=== PATIENT | male | born 1965 | race Caucasian/White ===

== ENCOUNTER 2022-02-18 05:38 | Day surgery (SDC) | payer MEDICARE ==
[2022-02-08 16:20] LABS: BASOPHILS # (AUTO) 0.1 X10'3 (0-0.2); BASOPHILS % (AUTO) 0.8 % (0-1); EOSINOPHILS # (AUTO) 0.1 X10'3 (0-0.9); EOSINOPHILS % (AUTO) 1.1 % (0-6); LYMPHOCYTES # (AUTO) 1.4 X10'3 (1.1-4.8); LYMPHOCYTES % (AUTO) 19.5 % (21-51); MEAN CORPUSCULAR HEMOGLOBIN 28.3 PG (27.0-31.0); MEAN CORPUSCULAR HGB CONC 34.2 g/dL (33.0-36.5); MEAN CORPUSCULAR VOLUME 82.7 FL (78-98); MONOCYTES # (AUTO) 0.3 X10'3 (0-0.9); MONOCYTES % (AUTO) 4.9 % (2-12); NEUTROPHILS # (AUTO) 5.3 X10'3 (1.8-7.7); NEUTROPHILS % (AUTO) 73.7 % (42-75); PRE OP HEMATOCRIT 42.8 % (42.0-52.0); PRE OP HEMOGLOBIN 14.6 g/dL (14.0-17.9); PRE OP PLATELET COUNT 276 X10'3 (140-440); RED BLOOD COUNT 5.18 X10'6 (4.70-6.10); RED CELL DISTRIBUTION WIDTH 14.9 % (11.5-14.5)
[2022-02-08 16:38] LABS: ALBUMIN 3.8 G/DL (3.4-5.0); ALBUMIN/GLOBULIN RATIO 1.1 (1.1-1.5); ALKALINE PHOSPHATASE 99 IU/L (46-116); BLOOD UREA NITROGEN 10 MG/DL (7-18); BUN/CREATININE RATIO 13.2 (5.4-32.0); CALCIUM 9.1 MG/DL (8.5-10.1); CHLORIDE 102 MMOL/L (99-107); CREATININE 0.76 MG/DL (0.60-1.10); PRE OP ALT 33 U/L (30-65); PRE OP ANION GAP 15 (8-16); PRE OP AST 19 U/L (10-37); PRE OP GLUCOSE 163 MG/DL (70-104); PRE OP POTASSIUM 3.8 MMOL/L (3.4-5.1); PRE OP SODIUM 144 MMOL/L (135-145); TOTAL CARBON DIOXIDE 26.7 MMOL/L (24-32); TOTAL PROTEIN 7.3 G/DL (6.4-8.2); eGFR > 90 ML/MIN
[2022-02-18] VITALS (9 sets, daily range): BP systolic 143–170; BP diastolic 87–104
[~2022-02-18] VITALS: Ht 172.7 cm; Wt 104.5 kg
[~2022-02-18 05:38] MED LIST: CYCL5TAB PO; HYDR25TA4 PO; MELO-102 PO; METF-1203 PO; PRAV80TA3 PO; ceFAZolin inj. 2,000 MG in dextrose 5%-water 100 ML IV ONE; famotidine 20mg tablet PO ONE; ringers solution, lacted 1,000 ML IV SCH
--- NOTE | 2022-02-18 05:45 | NUR ---
PT ARRIVE FOR SURGERY ON LEFT SHOULDER. PTS FRIEND AT BEDSIDE, NEEDS AN HOURS NOTICE FOR PICKUP. rADIAL PULSE MARKED, PT EDUCATED ON THE USE OF THE INCENTIVE SPIROMETRY. PT WAS ABLE TO PERFORM IS WITHOUT DIFFICULTY, OBTAINED TITAL VOLUME OF 3000. iV STARTED IN RIGHT HAND WITHOUT DIFFICULTY. SCD STOCKINGS PLACED ON PT.
[2022-02-18] MEDS ORDERED: FENTANYL CITRATE/PF 50 MCG/1 ML VIAL ONE (07:21)
[2022-02-18] MEDS ORDERED: ROPIVAcaine 0.5% (5mg/ml) 30ml vial ONE (07:22)
[2022-02-18] MEDS ORDERED: midazolam 1 mg/ML 2ml injection ONE (07:22)
[2022-02-18] MEDS ORDERED: propofol inj 20 ML IV ONE (07:23)
[2022-02-18] MEDS ORDERED: LIDOcaine 2% (20mg/ml) 5ml vial ONE (07:23)
[2022-02-18] MEDS ORDERED: desflurane 240ml liquid inh. IH ONE (07:28)
[2022-02-18] MEDS ORDERED: ondansetron/PF 4mg/2ml inj ONE (07:28)
[2022-02-18] MEDS ORDERED: labetalol 20mg/4ml (5mg/ml) syringe IV PRN (07:30)
[2022-02-18] MEDS ORDERED: BUPIVAcaine 0.5% inj/PF 30 ML ONE (07:30)
[2022-02-18] MEDS ORDERED: hydrALAZINE 20mg/ml inj. IV PRN (07:30)
[2022-02-18] MEDS ORDERED: morphine 4 MG/ML inj SYRINge IV PRN (07:30)
[2022-02-18] MEDS ORDERED: fentaNYL/PF 50MCG/1 ML 2ML syringe IV PRN ×2 (07:30)
[2022-02-18] MEDS ORDERED: ringers solution, lacted 1,000 ML IV SCH (07:30)
[2022-02-18] MEDS ORDERED: morphine 2 MG/ML inj. syringe IV PRN (07:30)
[2022-02-18] MEDS ORDERED: ondansetron/PF 4mg/2ml inj IV PRN (07:30)
[2022-02-18] MEDS ORDERED: ROPIVAcaine 0.2%/PF PUMP/bolus 545 ML INTERSCALE SCH (07:50)
[2022-02-18] MEDS ORDERED: ROPIVAcaine 0.2% (10 MG/5 ML) BOLUS INJECTION INTERSCALE PRN (07:50)
--- NOTE | 2022-02-18 09:26 | NUR ---
Received from OR via [facility] IN STABLE CONDITION , accompanied by Anesthesiologist and IR RN report given by SPEE[employer]ANGUAGE PATHOLOGIST TRAVEL AND Anesthesiolgist. Addendum: 02/18/22 at 0948 by Miriam Garcia RN Amended: Links added.
[2022-02-18] MEDS ORDERED: HYDROcodone/acetaminophen 10/325mg tab PO PRN (09:30)
--- NOTE | 2022-02-18 10:36 | NUR ---
PATIENT DISCHARGED FROM PACU IN STABLE CONDITION AFTER WRITTEN AND VERBAL DISCHARGE INSTRUCTIONS GIVEN. PATIENT LEFT FACILITY VIA WHEELCHAIR WITH RN. Addendum: 02/18/22 at 1120 by Miriam Garcia RN Amended: Links added.
--- NOTE | 2022-02-18 10:36 | NUR ---
PATIENT DISCHARGED FROM PACU IN STABLE CONDITION AFTER WRITTEN AND VERBAL DISCHARGE INSTRUCTIONS GIVEN. PATIENT LEFT FACILITY VIA WHEEL C
== END 2022-02-18 10:36 | disposition home or self-care (01) ==
LOC: PAS 05:38
PROVIDERS: ATTEND Orthopaedic Surgery
DX: M75.122 Complete rotator cuff tear or rupture of left shoulder, not specified as traumatic (principal); M75.42 Impingement syndrome of left shoulder; M19.012 Primary osteoarthritis, left shoulder; M19.90 Unspecified osteoarthritis, unspecified site; M16.12 Unilateral primary osteoarthritis, left hip; E11.9 Type 2 diabetes mellitus without complications; Z79.899 Other long term (current) drug therapy; G89.18 Other acute postprocedural pain; Z98.890 Other specified postprocedural states; G89.4 Chronic pain syndrome
CPT/HCPCS: 29824; 29826; 29827; 36415; 64415; 76942; 80053; 82948; 85025; C1713; J0690; J2250; J2704; J2795; J3010; J3490; J7060; J7120; S0020; Z7506; Z7508; Z7512; A4565; A4618; A6449; A7000; J2405

== ENCOUNTER 2024-08-04 09:51 | Outpatient (CLI) | payer MEDICARE ==
[~2024-08-04 09:51] MED LIST changes: +CYCL-920 PO; -CYCL5TAB PO; -ceFAZolin inj. 2,000 MG in dextrose 5%-water 100 ML IV ONE; -famotidine 20mg tablet PO ONE; +iohexol 350 MG/ML 50ML vial IV ONE; +iohexol 350MG/ML 100ml bottle IV ONE; -ringers solution, lacted 1,000 ML IV SCH
[2024-08-04 10:20] LABS: BASOPHILS # (AUTO) 0.1 X10'3 (0-0.2); BASOPHILS % (AUTO) 1.1 % (0-1); EOSINOPHILS # (AUTO) 0.3 X10'3 (0-0.9); EOSINOPHILS % (AUTO) 4.7 % (0-6); HEMATOCRIT 44.8 % (42.0-52.0); HEMOGLOBIN 15.6 g/dl (14.0-17.9); LYMPHOCYTES # (AUTO) 1.4 X10'3 (1.1-4.8); LYMPHOCYTES % (AUTO) 22.9 % (21-51); MEAN CORPUSCULAR HEMOGLOBIN 29.2 PG (27.0-31.0); MEAN CORPUSCULAR HGB CONC 34.8 g/dL (33.0-36.5); MEAN PLATELET VOLUME 8.2 FL (7.4-10.4); MONOCYTES # (AUTO) 0.4 X10'3 (0-0.9); NEUTROPHILS # (AUTO) 3.9 X10'3 (1.8-7.7); NEUTROPHILS % (AUTO) 65.3 % (42-75); PLATELET COUNT 253 X10'3 (140-440); RED BLOOD COUNT 5.33 X10'6 (4.70-6.10); RED CELL DISTRIBUTION WIDTH 13.5 % (11.5-14.5)
[2024-08-04 10:37] LABS: ALANINE AMINOTRANSFERASE 49 U/L (12-78); ALBUMIN 3.7 G/DL (3.4-5.0); ALBUMIN/GLOBULIN RATIO 1.2 (1.1-1.5); ALKALINE PHOSPHATASE 69 IU/L (46-116); ANION GAP 9 (8-16); ASPARTATE AMINO TRANSFERASE 18 U/L (10-37); BILIRUBIN,TOTAL 2.1 MG/DL (0.1-1.0); BLOOD UREA NITROGEN 18 MG/DL (7-18); BUN/CREATININE RATIO 22.8 (10.0-20.0); CHLORIDE 105 MMOL/L (99-107); CREATININE 0.79 MG/DL (0.60-1.10); GLUCOSE 159 MG/DL (70-104); POTASSIUM 4.1 MMOL/L (3.5-5.1); SODIUM 141 MMOL/L (135-145); TOTAL CARBON DIOXIDE 27.4 MMOL/L (24-32); TOTAL PROTEIN 6.8 G/DL (6.4-8.2); eGFR > 90 ML/MIN
--- NOTE | 2024-08-04 19:02 | RADIOLOGY REPORT ---
EXAM: CT CTA UPPER EXTREMITY INDICATION: ANETHESIA OF SKIN TECHNIQUE: Axial images of left upper extremity anterior have been obtained along with coronal and sa gittal reformatted images. All CT scans at this facility use dose modulation, iterative reconstructio n, and/or weight based dosing when appropriate to reduce radiation dose to as low as reasonably achie vable. Coronal and sagittal reformations and maximum intensity projection images were created from th e transaxial source data by the cardiovascular technologist and workstation, as well as 3-D volume rendered image s with MIPs. COMPARISON: None FINDINGS: BONES: No CT evidence of an acute fracture or aggressive osseous lesion. MUSCLES: No abnormal attenuation. JOINT SPACES: No joint effusion. TENDONS/LIGAMENTS: Intact. OTHER: In regards to the clinical question, no visualized hematoma, arterial vessel occlusion or drai nable fluid collection. No visualized abnormal CT apparent mass along the neurovascular bundles. Sple nule in the left upper quadrant. IMPRESSION: 1. In regards to the clinical question, no visualized hematoma, arterial vessel occlusion or drainabl e fluid collection. No visualized abnormal CT apparent mass along the neurovascular bundles.
--- NOTE | 2024-08-04 21:10 | RADIOLOGY REPORT ---
EXAM: MR MRI C SPINE HISTORY: CERVICALGIA COMPARISON: None TECHNIQUE: MRI was performed utilizing multiple appropriate imaging planes and pulse sequences. FINDINGS: CRANIOCERVICAL JUNCTION: The atlanto-dens interval is within normal limits. There is no evidence for significant cerebellar tonsillar ectopia. BONES: Vertebral body heights are preserved. No acute compression deformities are present. No discre te marrow infiltrative lesion is seen. SPINAL CORD: The spinal cord demonstrates normal signal and morphology throughout its course. No cord edema is present. PARASPINAL SOFT TISSUES: Unremarkable. INTERVERTEBRAL DISCS: C2-C3: Mild broad-based posterior disc bulge and mild bilateral posterior facet arthropathy without s ignificant central canal or neural foramina stenosis. C3-C4: 3.5 mm broad-based posterior disc bulge and mild bilateral posterior facet arthropathy with mi ld central canal stenosis on moderate left neural foramina stenosis with impingement of the left exit ing nerve. C4-C5: Broad-based posterior disc bone measuring up to 4.4 mm in the central region, mild bilateral p osterior facets arthropathy and resultant mild central canal stenosis, indentation of the ventral spi nal cord, mild right and moderate left neural foramina stenosis with impingement of the bilateral tra versing ventral nerve roots and the left exiting nerve. C5-C6: Discectomy and anterior fusion. The central canal and neural foramina are patent. C6-C7: Discectomy and anterior fusion. The central canal and neural foramina are patent. C7-T1: 2 mm degenerative grade 1 anterolisthesis, mild reduction in disc height, mild broad-based pos terior disc bulge, moderate bilateral posterior facet arthropathy with resultant mild central canal s tenosis and mild bilateral neural foramina stenosis with abutment of the bilateral exiting nerves. IMPRESSION: Straightening of normal lordosis, multilevel degenerative disc disease and posterior facet arthropath y with evidence of nerve impingement C3-C4, C4-C5 and C7-T1 levels. C3-C4: 3.5 mm broad-based posterior disc bulge and mild bilateral posterior facet arthropathy with mi ld central canal stenosis on moderate left neural foramina stenosis with impingement of the left exit ing nerve. C4-C5: Broad-based posterior disc bone measuring up to 4.4 mm in the central region, mild bilateral p osterior facets arthropathy and resultant mild central canal stenosis, indentation of the ventral spi nal cord, mild right and moderate left neural foramina stenosis with impingement of the bilateral tra versing ventral nerve roots and the left exiting nerve. C5-C6: Discectomy and anterior fusion. The central canal and neural foramina are patent. C6-C7: Discectomy and anterior fusion. The central canal and neural foramina are patent. C7-T1: 2 mm degenerative grade 1 anterolisthesis, mild reduction of disc height, mild broad-based pos terior disc bulge, moderate bilateral posterior facet arthropathy with resultant mild central canal s tenosis and mild bilateral neural foramina stenosis with abutment of the bilateral exiting nerves.
== END 2024-08-04 23:59 | disposition home or self-care (01) ==
LOC: RAD 09:51
PROVIDERS: ATTEND Family Medicine
DX: M50.11 Cervical disc disorder with radiculopathy, high cervical region (principal); R20.0 Anesthesia of skin; M48.02 Spinal stenosis, cervical region; M43.13 Spondylolisthesis, cervicothoracic region
CPT/HCPCS: 36415; 72141; 73206; 80053; 85025; Q9967